=== PATIENT | female | born 2005 | race Hispanic/Latino ===

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

== ENCOUNTER 2023-03-04 23:30 | Emergency (ER) | payer OTHER ==
[~2023-03-04] VITALS: Ht 157.5 cm; Wt 81.8 kg
[2023-03-04 23:55] VITALS: BP 151/84
[2023-03-05] VITALS: BP 148/94
[2023-03-05] MEDS ORDERED: KEFLEX500 MG PO (00:06)
[2023-03-05 00:16] VITALS: BP 137/97
[2023-03-05 00:30] VITALS: BP 137/97
== END 2023-03-05 00:39 | disposition home or self-care (01) ==
LOC: ED 23:30
DX: L03.113 Cellulitis of right upper limb (principal)

== ENCOUNTER 2023-08-20 22:15 | Emergency (ER) | payer OTHER ==
[~2023-08-20] VITALS: Ht 157.5 cm; Wt 81.6 kg
[~2023-08-20 22:15] MED LIST changes: +KEFLEX500 MG PO
== END 2023-08-21 01:02 | disposition home or self-care (01) ==
LOC: ED 22:15
DX: S93.602A Unspecified sprain of left foot, initial encounter (principal); W17.2XXA Fall into hole, initial encounter